=== PATIENT | male | born 1980 | race African-American/Black ===

== ENCOUNTER 2017-11-11 00:04 | Emergency (ER) | payer MEDICAID ==
[~2017-11-11] VITALS: Ht 190.5 cm; Wt 68.0 kg
[2017-11-11 03:31] VITALS: BP 115/54
== END 2017-11-11 03:38 | disposition home or self-care (01) ==
LOC: ER 00:04
DX: R51 Headache (principal)
CPT/HCPCS: 99283; Z7610